=== PATIENT | female | born 1955 | race Caucasian/White ===

== ENCOUNTER 2019-03-06 17:17 | Emergency (ER) | payer OTHER ==
--- NOTE | 2019-03-06 18:23 | RAD REPORT ---
EXAM DESCRIPTION: RAD - Knee Left 3 View - 03/06/2019 6:12 pm CLINICAL HISTORY: Left knee pain status post injury FINDINGS: Fracture involves the mid patella. Fracture fragments are by 2 centimeters. No dislocation
--- NOTE | 2019-03-06 18:30 | ER ---
Nurse's Notes [facility] Name: Stacey Marin Age: 63 yrs Sex: Female : 1955 Arrival Date: 03/06/2019 Time: 17:22 Bed 23 Private MD: Diagnosis: Displaced transverse fracture of left patella;Fall on same level from slipping, tripping and stumbling Presentation: 03/06 17:22 Presenting complaint: Patient states: L knee pain after falling from a standing ss position while stepping out of tub. 1000 mg Tylenol administered en route. Transition of care: patient was not received from another setting of care. Onset of symptoms was March 06, 2019. Risk Assessment: Do you want to hurt yourself or someone else? Patient reports no desire to harm self or others. Initial Sepsis Screen: Does the patient meet any 2 criteria? No. Patient's initial sepsis screen is negative. Does the patient have a suspected source of infection? No. Patient's initial sepsis screen is negative. Care prior to arrival: L knee splinted. 1000 mg Tylenol given PO. 17:22 Method Of Arrival: EMS: [facility] 17:22 Acuity: TONY 4 ss Triage Assessment: 17:30 Injury Description: fell onto left knee coming out of the bathtub. aa5 Historical: - Allergies: 17:26 Sulfa (Sulfonamide Antibiotics); ss - PSHx: 17:26 Appendectomy; Hysterectomy; melanoma removal; foot surgery; ; ss - Immunization history:: Adult Immunizations up to date. - Social history:: Smoking status: Patient/guardian denies using tobacco. - Ebola Screening: : Patient denies exposure to infectious person Patient denies travel to an Ebola-affected area in the 21 days before illness onset. Screenin:30 Abuse screen: Denies threats or abuse. Nutritional screening: No deficits noted. aa5 Tuberculosis screening: No symptoms or risk factors identified. Fall Risk Fall in past 12 months (25 points). Total Padilla Fall Scale indicates Low Risk Score (25-44 pts). Fall prevention measures have been instituted. Side Rails Up X 2 Placed close to Nursing Station. Assessment: 17:27 Reassessment: Ice pack applied to left knee . aa5 17:30 General: Appears comfortable, Behavior is calm, cooperative. Pain: Complains of pain in aa5 left knee Pain does not radiate. Pain currently is 4 out of 10 on a pain scale. Quality of pain is described as sharp, shooting, tender, Pain began post fall Is continuous, Aggravated by repositioning. Neuro: Level of Consciousness is awake, alert, obeys commands, Oriented to person, place, time, situation. Cardiovascular: Patient's skin is warm and dry. Respiratory: Airway is patent Respiratory effort is even, unlabored, Respiratory pattern is regular, symmetrical. GI: No signs and/or symptoms were reported involving the gastrointestinal system. : No signs and/or symptoms were reported regarding the genitourinary system. EENT: No signs and/or symptoms were reported regarding the EENT system. Derm: Skin is pink, warm \T\ dry. Musculoskeletal: Reports pain in left knee. 18:02 Reassessment: Patient is alert, oriented x 3, equal unlabored respirations, skin aa5 warm/dry/pink. x-ray completed at bedside . 18:41 Reassessment: Patient is alert, oriented x 3, equal unlabored respirations, skin aa5 warm/dry/pink. Pt now requesting pain medication before d/c home. STAND GRINDER was notified . 19:02 Reassessment: Patient is alert, oriented x 3, equal unlabored respirations, skin aa5 warm/dry/pink. Vital Signs: 17:26 BP 148 / 92; Pulse 68; Resp 16; Temp 98.3(TE); Pulse Ox 95% on R/A; Weight 74.84 kg; ss Height 5 ft. 4 in. (162.56 cm); Pain 4/10; 18:40 BP 147 / 90; Pulse 67; Resp 18 S; Pulse Ox 97% on R/A; Pain 5/10; aa5 17:26 Body Mass Index 28.32 (74.84 kg, 162.56 cm) ED Course: 17:22 Patient arrived in ED. ss 17:25 Sherin Farfan [facility]-C [facility]. snw 17:25 Lewis Moulton MD is Attending Physician. snw 17:26 Triage completed. ss 17:26 Arm band placed on right wrist. ss 17:27 Allyssa Helm, SANDRA is Primary Nurse. aa5 17:30 Patient has correct armband on for positive identification. Bed in low position. Call aa5 light in reach. Side rails up X2. Adult w/ patient. 18:16 Knee Left 3 View XRAY In Process Unspecified. EDMS 18:24 Mick Lloyd MD is Referral Physician. snw 18:50 No provider procedures requiring assistance completed. Patient did not have IV access aa5 during this emergency room visit. Administered Medications: 18:45 Drug: fentaNYL (PF) 50 mcg Route: IM; Site: right deltoid; aa5 19:02 Follow up: Response: No adverse reaction aa5 Outcome: 18:26 Discharge ordered by . snw 18:50 Discharged to home aa5 18:50 Condition: stable 18:50 Discharge instructions given to patient, Instructed on discharge instructions, follow up and referral plans. medication usage, Demonstrated understanding of instructions, follow-up care, medications, Prescriptions given X 1, Awaiting for family member to bring wheelchair with leg legal instructor before pt leaves the ER. 19:03 Discharged to home via wheelchair, with family. aa5 19:05 Patient left the ED. aa5 Signatures: Dispatcher [employer] EDOH Sherin Farfan, DESKTOP ADMINISTRATOR-C DESKTOP ADMINISTRATOR-Csnw Allyssa Helm, RN RN aa5 Faiza Fernandez RN RN ss
--- NOTE | 2019-03-06 18:31 | EDPHYS ---
Physician Documentation [facility] Name: Stacey Marin Age: 63 yrs Sex: Female : 1955 Arrival Date: 03/06/2019 Time: 17:22 Bed 23 Private MD: ED Physician Lewis Moulton HPI: 03/06 18:08 This 63 yrs old Female presents to ER via EMS with complaints of Knee Injury. snw 18:08 Onset: The symptoms/episode began/occurred suddenly, just prior to arrival. The patient snw has not experienced similar symptoms in the past. The patient has not recently seen a physician. cleaning bathtub and slipped, landed on left knee. Historical: - Allergies: 17:26 Sulfa (Sulfonamide Antibiotics); ss - PSHx: 17:26 Appendectomy; Hysterectomy; melanoma removal; foot surgery; ; ss - Immunization history:: Adult Immunizations up to date. - Social history:: Smoking status: Patient/guardian denies using tobacco. - Ebola Screening: : Patient denies exposure to infectious person Patient denies travel to an Ebola-affected area in the 21 days before illness onset. ROS: 18:07 Constitutional: Negative for fever, chills, and weight loss, Eyes: Negative for injury, snw pain, redness, and discharge, ENT: Negative for injury, pain, and discharge, Neck: Negative for injury, pain, and swelling, Cardiovascular: Negative for chest pain, palpitations, and edema, Respiratory: Negative for shortness of breath, cough, wheezing, and pleuritic chest pain, Abdomen/GI: Negative for abdominal pain, nausea, vomiting, diarrhea, and constipation, Back: Negative for injury and pain, : Negative for injury, bleeding, discharge, and swelling, Skin: Negative for injury, rash, and discoloration, Neuro: Negative for headache, weakness, numbness, tingling, and seizure, Psych: Negative for depression, anxiety, suicide ideation, homicidal ideation, and hallucinations. 18:07 MS/extremity: Positive for injury or acute deformity, decreased range of motion, pain, swelling, of the left knee. Exam: 18:05 Constitutional: This is a well developed, well nourished patient who is awake, alert, snw and in no acute distress. Head/Face: Normocephalic, atraumatic. Eyes: Pupils equal round and reactive to light, extra-ocular motions intact. Lids and lashes normal. Conjunctiva and sclera are non-icteric and not injected. Cornea within normal limits. Periorbital areas with no swelling, redness, or edema. ENT: Nares patent. No nasal discharge, no septal abnormalities noted. Tympanic membranes are normal and external auditory canals are clear. Oropharynx with no redness, swelling, or masses, exudates, or evidence of obstruction, uvula midline. Mucous membranes moist. Neck: Trachea midline, no thyromegaly or masses palpated, and no cervical lymphadenopathy. Supple, full range of motion without nuchal rigidity, or vertebral point tenderness. No Meningismus. Chest/axilla: Normal chest wall appearance and motion. Nontender with no deformity. No lesions are appreciated. Cardiovascular: Regular rate and rhythm with a normal S1 and S2. No gallops, murmurs, or rubs. Normal PMI, no JVD. No pulse deficits. Respiratory: Lungs have equal breath sounds bilaterally, clear to auscultation and percussion. No rales, rhonchi or wheezes noted. No increased work of breathing, no retractions or nasal flaring. Abdomen/GI: Soft, non-tender, with normal bowel sounds. No distension or tympany. No guarding or rebound. No evidence of tenderness throughout. Back: No spinal tenderness. No costovertebral tenderness. Full range of motion. Skin: Warm, dry with normal turgor. Normal color with no rashes, no lesions, and no evidence of cellulitis. Neuro: Awake and alert, GCS 15, oriented to person, place, time, and situation. Cranial nerves II-XII grossly intact. Motor strength 5/5 in all extremities. Sensory grossly intact. Cerebellar exam normal. Normal gait. Psych: Awake, alert, with orientation to person, place and time. Behavior, mood, and affect are within normal limits. 18:05 Musculoskeletal/extremity: ROM: limited active range of motion due to pain, limited passive range of motion due to pain, in the left knee, Pulses: are normal with no appreciated deficits, Sensation intact. Vital Signs: 17:26 BP 148 / 92; Pulse 68; Resp 16; Temp 98.3(TE); Pulse Ox 95% on R/A; Weight 74.84 kg; ss Height 5 ft. 4 in. (162.56 cm); Pain 4/10; 18:40 BP 147 / 90; Pulse 67; Resp 18 S; Pulse Ox 97% on R/A; Pain 5/10; aa5 17:26 Body Mass Index 28.32 (74.84 kg, 162.56 cm) ss MDM: 17:26 Patient medically screened. snw 18:28 Data reviewed: vital signs, nurses notes. Data interpreted: Pulse oximetry: on room air snw is 95 %. Interpretation: acceptable. Counseling: I had a detailed discussion with the patient and/or guardian regarding: the historical points, exam findings, and any diagnostic results supporting the discharge/admit diagnosis, the presence of at least one elevated blood pressure reading (>120/80) during this emergency department visit, radiology results, the need for outpatient follow up, to return to the emergency department if symptoms worsen or persist or if there are any questions or concerns that arise at home. Special discussion: I have referred the patient to see his PCP for further evaluation of high blood pressure. Based on the history and exam findings, there is no indication for further emergent testing or inpatient evaluation. I discussed with the patient/guardian the need to see the orthopedic surgeon for further evaluation of the symptoms. I discussed with the patient/guardian the need to see the primary care provider for further evaluation of the symptoms. 12 17:40 Order name: Knee Left 3 View XRAY; Complete Time: 18:47 snw 03/06 18:19 Order name: Knee Immobilizer; Complete Time: 18:47 snw Administered Medications: 18:45 Drug: fentaNYL (PF) 50 mcg Route: IM; Site: right deltoid; aa5 19:02 Follow up: Response: No adverse reaction aa5 Disposition: 19:08 Co-signature as Attending Physician, Lewis Moulton MD. rn Disposition: 03/06/19 18:26 Discharged to Home. Impression: Displaced transverse fracture of left patella, Fall on same level from slipping, tripping and stumbling. - Condition is Stable. - Discharge Instructions: Fall Prevention in the Home, Patellar Fracture, Adult, How to Use a Wheelchair. - Prescriptions for Tylenol- Codeine #3 300-30 mg Oral Tablet - take 2 tablets by ORAL route every 6 hours As needed; 16 tablet. - Medication Reconciliation Form, Thank You Letter, Antibiotic Education, Prescription Opioid Use form. - Follow up: Mick Lloyd MD; When: 1 - 2 days; Reason: Recheck today's complaints, Continuance of care, Re-evaluation by your physician. Signatures: Dispatcher [employer] EDMS Sherin Farfan, TOOL TECHNICIAN-C TOOL TECHNICIAN-Csnw Lewis Moulton MD MD rn Calderon, Audri, RN RN aa5 [facility] Center[facility] rodrigue[facility] RN RN ss Corrections: (The following items were deleted from the chart) 18:26 18:26 03/06/2019 18:26 Discharged to Home. Impression: Displaced transverse fracture of snw left patella. Condition is Stable. Forms are Medication Reconciliation Form, Thank You Letter, Antibiotic Education, Prescription Opioid Use. Follow up: Mick Lloyd; When: 1 - 2 days; Reason: Recheck today's complaints, Continuance of care, Re-evaluation by your physician. snw 19:05 18:26 03/06/2019 18:26 Discharged to Home. Impression: Displaced transverse fracture of aa5 left patella; Fall on same level from slipping, tripping and stumbling. Condition is Stable. Forms are Medication Reconciliation Form, Thank You Letter, Antibiotic Education, Prescription Opioid Use. Follow up: Mick Lloyd; When: 1 - 2 days; Reason: Recheck today's complaints, Continuance of care, Re-evaluation by your physician. snw
[2019-03-06] MEDS ORDERED: FENTANYL CITR 100 MCG/2 ML ONE (18:41)
[2019-03-06 21:00] VITALS: TEMP 98.3
[2019-03-06 21:02] VITALS: BP 147/90; O2SAT 97
== END 2019-03-06 19:05 | disposition home or self-care (01) ==
LOC: ER 17:17
DX: S82.032A Displaced transverse fracture of left patella, initial encounter for closed fracture (principal); W01.0XXA Fall on same level from slipping, tripping and stumbling without subsequent striking against object, initial encounter; Y93.E9 Activity, other interior property and clothing maintenance; Y92.9 Unspecified place or not applicable; Z88.2 Allergy status to sulfonamides
CPT/HCPCS: 73562; 96372; 99284; J3010

== ENCOUNTER 2020-12-26 14:50 | Emergency (ER) | payer OTHER ==
[2020-12-26 15:25] LABS: Urine Blood 1+ (Negative); Urine Glucose Negative (Negative); Urine Protein Negative (Negative)
[2020-12-26 15:56] LABS: Absolute Lymphocytes (CBC) 1.4 K/uL (0.7-4.9); Hematocrit 37.9 % (36.0-45.0); Lymphocytes % 12.5 % (15.3-44.8); RBC Red Blood Cell Count 4.57 M/uL (3.86-4.86)
[2020-12-26 16:12] LABS: Albumin 3.7 g/dL (3.4-5.0); Bilirubin Direct 0.2 mg/dL (0-0.2); Potassium 3.8 mmol/L (3.5-5.1); Protein, Total 8.2 g/dL (6.4-8.2)
--- NOTE | 2020-12-26 16:29 | RAD REPORT ---
EXAM DESCRIPTION: CT - Abdomen Pelvis W Contrast - 12/26/2020 4:10 pm CLINICAL HISTORY: lower abdominal pain COMPARISON: <Comparisons> TECHNIQUE: Biphasic, helical CT imaging of the abdomen and pelvis was performed following 100 ml non -ionic IV contrast. No oral contrast administered. All CT scans are performed using dose optimization technique as appropriate and may include automated exposure control or mA/KV adjustment according to patient size. FINDINGS: No suspicious findings in the lung bases. The liver, spleen, and pancreas show no suspicious findings. Gallbladder and biliary tree are also wi thout suspicious finding. Symmetric renal function is seen with no hydronephrosis or suspicious renal mass. No pyelonephritis o r acute parenchymal process. No bladder abnormalities. No adrenal abnormalities. Uterus is absent by history. Ovaries are atrophied or surgically absent. Moderate-size hiatal hernia is present with approximately 20% of the stomach intrathoracic. No acute stomach or small bowel finding. Appendix is surgically absent by history. From cecum through descendi ng colon no acute findings seen. There is mild distal descending colon diverticulosis. No rectum or d istal sigmoid colon acute finding. The sigmoid is redundant. A 7 centimeter long length of the proximal sigmoid colon shows moderate circumferential wall thickeni ng with stranding and edema in the adjacent fat. There is prominent diverticulosis through this regio n. No extraluminal air or bowel content. No free air, free fluid or pneumatosis. No hernia, mass or bulky lymphadenopathy. No suspicious bony findings. IMPRESSION: Acute diverticulitis in the proximal sigmoid colon. No abscess, free air or surgically emergent finding.
--- NOTE | 2020-12-26 16:35 | ER ---
Nurse's Notes [facility] Name: Stacey Marin Age: 65 yrs Sex: Female : 1955 Arrival Date: 12/26/2020 Time: 14:57 Bed 15 Private MD: Diagnosis: Acute sigmoid diverticulitis Presentation: 12/26 15:05 Chief complaint: Patient states: Low grade fevers and Lower abdominal pain/ pelvic pain kg x 2 days, frequent urination. Denies N/V/D. Coronavirus screen: Vaccine status: Patient reports being unvaccinated. Client denies travel out of the [place] in the last 14 days. fever, Client presents with at least one sign or symptom that may indicate coronavirus-19. Standard/surgical mask placed on the client. Provider contacted for isolation considerations. Ebola Screen: Patient negative for fever greater than or equal to 101.5 degrees Fahrenheit, and additional compatible Ebola Virus Disease symptoms Patient denies exposure to infectious person. Patient denies travel to an Ebola-affected area in the 21 days before illness onset. Initial Sepsis Screen: Does the patient meet any 2 criteria? No. Patient's initial sepsis screen is negative. Does the patient have a suspected source of infection? No. Patient's initial sepsis screen is negative. Risk Assessment: Do you want to hurt yourself or someone else? Patient reports no desire to harm self or others. Onset of symptoms was December 25, 2020. 15:05 Method Of Arrival: Wheelchair kg 15:05 Acuity: TONY 3 kg Triage Assessment: 15:08 General: Appears in no apparent distress. Behavior is calm, cooperative, appropriate kg for age, quiet. Pain: Complains of pain in abdomen Pain currently is 4 out of 10 on a pain scale. at worst was 10 out of 10 on a pain scale. level that patient reports is acceptable is 3 out of 10 on a pain scale. GI: Reports lower abdominal pain, upper abdominal pain. 15:13 : Reports urinary frequency. kg Historical: - Allergies: 15:08 Sulfa (Sulfonamide Antibiotics); kg - Home Meds: 15:08 irbesartan-hydrochlorothiazide 300-12.5 mg oral tab 1 tab PRN [Active]; kg - PMHx: 15:08 Hypertensive disorder; Skin CA; kg - PSHx: 15:08 Curtis knee sx; Skin CA removed; Total abdominal hysterectomy; kg 15:10 Appendectomy; kg - Immunization history:: Adult Immunizations not up to date, Client reports having NOT received the Covid vaccine. - Social history:: Smoking status: Patient denies any tobacco usage or history of. Screenin:22 Abuse screen: Denies threats or abuse. Denies injuries from another. Nutritional aj2 screening: No deficits noted. Tuberculosis screening: No symptoms or risk factors identified. Fall Risk None identified. Assessment: 15:22 General: Appears in no apparent distress. comfortable, Behavior is calm, cooperative. aj2 General: Denies pain \T\ this time. Reports pain is a sharp sensation 10/10 when urinating. Onset 1 day ago. reports taking Tylenol to alleviate pain; effective. Report pain radiate to pelvis region when it occurs. Pain increase with repositioning and activity.. Pain: Denies pain. Vital Signs: 15:05 BP 146 / 95; Pulse 103; Resp 20; Temp 99.7(O); Pulse Ox 94% on R/A; Weight 72.57 kg kg (R); Height 5 ft. 4 in. (162.56 cm); Pain 4/10; 15:22 BP 145 / 95; Pulse 101; Resp 18; Temp 99.7; Pulse Ox 100% ; aj2 15:05 Body Mass Index 27.46 (72.57 kg, 162.56 cm) kg ED Course: 14:57 Patient arrived in ED. mr 15:08 Triage completed. kg 15:19 Hermes Caro is Primary Nurse. aj2 15:22 Bret Jara PA is PHCP. [facility] 15:22 Edgar Deleon MD is Attending Physician. jmm 15:22 No apparent distress. Resting quietly. aj2 15:22 Patient has correct armband on for positive identification. aj2 15:22 No provider procedures requiring assistance completed. Patient did not have IV access aj2 during this emergency room visit. 15:49 Urine Culture Sent. aj2 15:49 Basic Metabolic Panel Sent. aj2 15:49 CBC with Diff Sent. aj2 15:49 Hepatic Function Sent. aj2 16:06 No apparent distress. Resting quietly. aj2 16:10 CT Abd/Pelvis - IV Contrast Only In Process Unspecified. EDMS 16:35 Laurent Banks MD is Referral Physician. jmm Administered Medications: 16:43 Drug: Flagyl (metroNIDAZOLE) 500 mg Route: PO; aj2 16:46 Drug: LevaQUIN (levofloxacin) 750 mg Route: PO; aj2 Outcome: 16:34 Discharge ordered by . maverick 17:11 Discharged to home via wheelchair, Home wheelchair. aj2 17:11 Condition: stable 17:11 Discharge instructions given to patient, Instructed on discharge instructions, follow up and referral plans. Demonstrated understanding of instructions, follow-up care, medications, Prescriptions given X 2. 17:12 Patient left the ED. aj2 Signatures: Dispatcher [employer] EDMS Bret Jara PA PA jmm Rivera, Mary mr Sil Rogers RN RN Hermes Lowe aj2 Corrections: (The following items were deleted from the chart) 15:13 15:05 Chief complaint: Patient states: Low grade fevers and Lower abdominal pain/ kg pelvic pain x 2 days. Denies N/V/D and denies problems with urination. kg
--- NOTE | 2020-12-26 16:35 | EDPHYS ---
Physician Documentation [facility] Name: Stacey Marin Age: 65 yrs Sex: Female : 1955 Arrival Date: 12/26/2020 Time: 14:57 Bed 15 Private MD: ED Physician Edgar Deleon HPI: 12/26 15:24 This 65 yrs old Female presents to ER via Wheelchair with complaints of jmm Abdominal Pain, Back Pain. 15:24 The patient presents with abdominal pain. Onset: The symptoms/episode began/occurred jmm gradually, 1 day(s) ago. The symptoms radiate to back. Associated signs and symptoms: Pertinent positives: fever. The symptoms are described as achy. Modifying factors: The symptoms are alleviated by nothing, the symptoms are aggravated by nothing. Alyse is a 65-year-old female with history of hypertension the presents emerged department with complaints of lower abdominal and pelvic pain beginning last night. Patient states she had a low-grade fever this time as well. Denies vomiting or diarrhea. Patient states that the back pain does radiate to her lower back as well. Historical: - Allergies: 15:08 Sulfa (Sulfonamide Antibiotics); kg - Home Meds: 15:08 irbesartan-hydrochlorothiazide 300-12.5 mg oral tab 1 tab PRN [Active]; kg - PMHx: 15:08 Hypertensive disorder; Skin CA; kg - PSHx: 15:08 Curtis knee sx; Skin CA removed; Total abdominal hysterectomy; kg 15:10 Appendectomy; kg - Immunization history:: Adult Immunizations not up to date, Client reports having NOT received the Covid vaccine. - Social history:: Smoking status: Patient denies any tobacco usage or history of. ROS: 15:24 Constitutional: Negative for fever, chills, and weight loss, Cardiovascular: Negative jmm for chest pain, palpitations, and edema, Respiratory: Negative for shortness of breath, cough, wheezing, and pleuritic chest pain. 15:24 Abdomen/GI: Positive for abdominal pain. 15:24 All other systems are negative. Exam: 15:24 Constitutional: This is a well developed, well nourished patient who is awake, alert, jmm and in no acute distress. Head/Face: atraumatic. Eyes: EOMI, no conjunctival erythema appreciated ENT: Moist Mucus Membranes Neck: Trachea midline, Supple Chest/axilla: Normal chest wall appearance and motion. Cardiovascular: Regular rate and rhythm. No edema appreciated Respiratory: Normal respirations, no respiratory distress appreciated 15:24 Abdomen/GI: Inspection: abdomen appears normal, Bowel sounds: normal, Palpation: soft, mild abdominal tenderness, in the suprapubic area. 15:40 Neuro: Orientation: is normal, Mentation: is normal, Memory: is normal. [facility] 15:40 Psych: Behavior/mood is pleasant, cooperative. Vital Signs: 15:05 BP 146 / 95; Pulse 103; Resp 20; Temp 99.7(O); Pulse Ox 94% on R/A; Weight 72.57 kg kg (R); Height 5 ft. 4 in. (162.56 cm); Pain 4/10; 15:22 BP 145 / 95; Pulse 101; Resp 18; Temp 99.7; Pulse Ox 100% ; aj2 15:05 Body Mass Index 27.46 (72.57 kg, 162.56 cm) kg MDM: 15:29 Patient medically screened. [facility] 16:34 Data reviewed: vital signs, nurses notes. Counseling: I had a detailed discussion with [facility] the patient and/or guardian regarding: the historical points, exam findings, and any diagnostic results supporting the discharge/admit diagnosis, radiology results, the need for outpatient follow up, to return to the emergency department if symptoms worsen or persist or if there are any questions or concerns that arise at home. ED course: Patient is alert nontoxic in appearance in the ED. Will treat with oral antibiotics. Patient otherwise given strict return precautions. Patient understood agrees plan of care.. 12/26 15:24 Order name: Urine Dipstick-Ancillary; Complete Time: 15:29 [facility] 12/26 15:30 Order name: Basic Metabolic Panel; Complete Time: 16:25 [facility] 12/26 15:30 Order name: CBC with Diff; Complete Time: 16:08 [facility] 12/26 15:30 Order name: Hepatic Function; Complete Time: 16:25 [facility] 12/26 15:30 Order name: Lipase; Complete Time: 16:25 [facility] 12/26 15:35 Order name: Urine Culture [facility] 12/26 15:30 Order name: IV Saline Lock; Complete Time: 15:49 [facility] 12/26 15:30 Order name: Labs collected and sent; Complete Time: 15:49 [facility] 12/26 15:30 Order name: CT Abd/Pelvis - IV Contrast Only; Complete Time: 16:30 [facility] Administered Medications: 16:43 Drug: Flagyl (metroNIDAZOLE) 500 mg Route: PO; aj2 16:46 Drug: LevaQUIN (levofloxacin) 750 mg Route: PO; aj2 Disposition Summary: 12/26/20 16:34 Discharge Ordered Location: Home [facility] Condition: Stable [facility] Diagnosis - Acute sigmoid diverticulitis [facility] Followup: [facility] - With: Private Physician - When: 2 - 3 days - Reason: Recheck today's complaints, Continuance of care, Re-evaluation by your physician Followup: [facility] - With: Laurent Banks MD - When: 2 - 3 days - Reason: Recheck today's complaints, Continuance of care, Re-evaluation by your physician Discharge Instructions: - Discharge Summary Sheet [facility] - Diverticulitis [facility] Forms: - Medication Reconciliation Form [facility] - Thank You Letter [facility] - Antibiotic Education [facility] - Prescription Opioid Use [facility] Prescriptions: - levofloxacin 750 mg Oral Tablet - take 1 tablet by ORAL route once daily for 10 days; 10 tablet; Refills: 0, [facility] Product Selection Permitted - Flagyl 500 mg Oral Tablet - take 1 tablet by ORAL route every 6 hours for 10 days; 40 tablet; Refills: 0, [facility] Product Selection Permitted Addendum: 12/31/2020 04:36 Co-signature as Attending Physician, Edgar Deleon MD PA/[employer]'s history reviewed, m a2 patient interviewed, and examined. I agree with assessment and care plan and confirm the diagnosis (es) above. Signatures: Dispatcher [employer] EDMS Bret Jara PA PA jmm Alzahri, Mohammad, MD MD ma2 Sil Rogers RN RN Hermes Lowe2 Corrections: (The following items were deleted from the chart) 12/26 15:40 15:24 Back: Normal ROM Skin: General appearance color normal MS/ Extremity: Moves all [facility] extremities, no obvious deformities appreciated, no edema noted to the lower extremities Neuro: Awake and alert, normal gait Psych: Behavior is normal, Mood is normal, Patient is cooperative and pleasant [facility]
[2020-12-26] MEDS ORDERED: metroNIDAZOLE 500 MG TABLET ONE (17:00)
[2020-12-26] MEDS ORDERED: levoFLOXacin 750 MG TAB ONE ×2 (17:00→17:02)
[2020-12-26 18:04] VITALS: TEMP 99.7
[2020-12-26 18:05] VITALS: BP 145/95; O2SAT 100
== END 2020-12-26 17:12 | disposition home or self-care (01) ==
LOC: ER 14:50
DX: K57.32 Diverticulitis of large intestine without perforation or abscess without bleeding (principal); I10 Essential (primary) hypertension; Z85.828 Personal history of other malignant neoplasm of skin; Z88.2 Allergy status to sulfonamides
CPT/HCPCS: 87088; 85025; 87086; 80048; 36415; 80076; 81003; 83690; 74177; 99284; Q9967